=== PATIENT | male | born 1985 | race Two or more races ===

== ENCOUNTER 2016-08-20 09:47 | Emergency (ER) | payer MEDICAID, SELFPAY ==
[~2016-08-20] VITALS: Ht 185.4 cm; Wt 104.0 kg
[2016-08-20 09:49] VITALS: BP 127/78
[2016-08-20] MEDS ORDERED: AZITHROMYCIN 500 MG TABLET ONE (10:07)
[2016-08-20] MEDS ORDERED: CEFTRIAXONE 250 MG ONE (10:08)
[2016-08-20] MEDS ORDERED: AZITHROMYCIN 500 MG TABLET PO ONE (10:30)
[2016-08-20] MEDS ORDERED: CEFTRIAXONE 250 MG IM ONE (10:30)
== END 2016-08-20 11:08 | disposition home or self-care (01) ==
LOC: ED 11:02
DX: Z20.2 Contact with and (suspected) exposure to infections with a predominantly sexual mode of transmission (principal); Z90.49 Acquired absence of other specified parts of digestive tract; F17.200 Nicotine dependence, unspecified, uncomplicated
CPT/HCPCS: 87491; 87591; 96372; 99283; J0696

== ENCOUNTER 2017-11-17 18:27 | Emergency (ER) | payer MEDICAID ==
[~2017-11-17] VITALS: Ht 185.4 cm; Wt 103.0 kg
[2017-11-17 18:52] VITALS: BP 107/62
[2017-11-17] MEDS ORDERED: FLUORESCEIN/BENOXINATE 5 ML DROPS OP ONE (19:00)
[2017-11-17] MEDS ORDERED: PROPARACAINE OPHTH 0.5%, 15ML EACHEYE ONE (19:00)
[2017-11-17] MEDS ORDERED: PROPARACAINE OPHTH 0.5%, 15ML ONE (19:02)
== END 2017-11-17 19:45 | disposition home or self-care (01) ==
LOC: ED 19:39
DX: H10.022 Other mucopurulent conjunctivitis, left eye (principal); Z90.49 Acquired absence of other specified parts of digestive tract
CPT/HCPCS: 99283

== ENCOUNTER 2017-12-07 05:47 | Emergency (ER) | payer MEDICAID ==
[~2017-12-07] VITALS: Ht 185.4 cm; Wt 102.1 kg
[2017-12-07 05:49] VITALS: BP 144/75
[2017-12-07] MEDS ORDERED: CEFTRIAXONE 1,000 MG ONE (06:23)
[2017-12-07] MEDS ORDERED: AZITHROMYCIN 500 MG TABLET ONE (06:23)
[2017-12-07] MEDS ORDERED: CEFTRIAXONE 250 MG IM ONE (06:30)
[2017-12-07] MEDS ORDERED: AZITHROMYCIN 500 MG TABLET PO ONE (06:30)
== END 2017-12-07 06:38 | disposition home or self-care (01) ==
LOC: ED 06:13
DX: A56.01 Chlamydial cystitis and urethritis (principal); A59.03 Trichomonal cystitis and urethritis; F17.200 Nicotine dependence, unspecified, uncomplicated
CPT/HCPCS: 96372; 99283; J0696

== ENCOUNTER 2018-01-12 10:33 | Emergency (ER) | payer MEDICAID ==
[~2018-01-12] VITALS: Ht 185.4 cm; Wt 102.3 kg
[2018-01-12] MEDS ORDERED: FAMOTIDINE 20 MG/2 ML IVPush ONE (11:00)
[2018-01-12] MEDS ORDERED: SODIUM CHLORIDE 0.9% 1,000ML IVBOLUS ONE (11:00)
[2018-01-12] MEDS ORDERED: ONDANSETRON 2MG/ML, 2ML IVPush ONE (11:00)
[2018-01-12] MEDS ORDERED: ONDANSETRON 2MG/ML, 2ML ONE (11:07)
[2018-01-12] MEDS ORDERED: FAMOTIDINE 20 MG/2 ML ONE (11:07)
[2018-01-12 11:27] LABS: BASOPHILS # (AUTO) 0.03 x10^3/uL (0-0.1); BASOPHILS % (AUTO) 0 % (0-1); EOSINOPHILS # (AUTO) 0.06 x10^3/uL (0-0.4); EOSINOPHILS % (AUTO) 1 % (1-7); LYMPHOCYTES # (AUTO) 0.77 x10^3/uL (1-3.4); LYMPHOCYTES % (AUTO) 9 % (22-44); MD NO; MEAN CORPUSCULAR HEMOGLOBIN 31.1 pg (27.5-34.5); MEAN CORPUSCULAR HGB CONC 33.9 g/dL (33.2-36.2); MEAN CORPUSCULAR VOLUME 91.8 fL (81-97); MEAN PLATELET VOLUME 7.9 fL (7.4-10.4); MONOCYTES # (AUTO) 0.83 x10^3/uL (0.2-0.8); MONOCYTES % (AUTO) 9 % (2-9); NEUTROPHILS # (AUTO) 7.27 x10^3/uL (1.8-6.8); NEUTROPHILS % (AUTO) 81 % (42-75); PLATELET COUNT 260 x10^3/uL (130-400); RED BLOOD COUNT 5.32 x10^6/uL (4.38-5.82); RED CELL DISTRIBUTION WIDTH 13.4 % (9.4-14.8)
[2018-01-12 11:30] LABS: ALANINE AMINOTRANSFERASE 45 U/L (12-78); ALBUMIN 3.9 g/dL (3.4-5.0); ANION GAP 6 mmol/L (5-15); CALCIUM 8.7 mg/dL (8.5-10.1); CHLORIDE 103 mmol/L (98-107); CREATININE 0.81 mg/dL (0.7-1.3)
[2018-01-12 11:32] LABS: ALKALINE PHOSPHATASE 61 U/L (45-117); BILIRUBIN,TOTAL 0.5 mg/dL (0.2-1.0); TOTAL PROTEIN 7.7 g/dL (6.4-8.2)
[2018-01-12] MEDS ORDERED: KETOROLAC 30 MG/1 ML IM ONE (12:30)
[2018-01-12] MEDS ORDERED: KETOROLAC 30 MG/1 ML ONE (13:25)
[2018-01-12 14:39] LABS: CLOSTRIDIUM DIFFICILE ANTIGEN NEGATIVE; CLOSTRIDIUM DIFFICILE TOXIN NEGATIVE (Negative)
[2018-01-12] MEDS ORDERED: KETOROLAC 30 MG/1 ML IVPush ONE (15:30)
[2018-01-12 15:55] VITALS: BP 108/61
== END 2018-01-12 16:58 | disposition home or self-care (01) ==
LOC: ED 13:33
DX: K52.9 Noninfective gastroenteritis and colitis, unspecified (principal); F12.10 Cannabis abuse, uncomplicated; Z86.19 Personal history of other infectious and parasitic diseases; Z90.49 Acquired absence of other specified parts of digestive tract
CPT/HCPCS: 36415; 80053; 85025; 87324; 89055; 96361; 96374; 96375; 99284; J1885; J2405; J3490; J7030

== ENCOUNTER 2018-01-13 17:53 | Emergency (ER) | payer MEDICAID ==
[~2018-01-13] VITALS: Ht 185.4 cm; Wt 100.0 kg
[2018-01-13] MEDS ORDERED: OMNIPAQUE 350 MG/ML, 100ML BOTTLE ONE (18:05)
[2018-01-13 18:32] LABS: BASOPHILS # (AUTO) 0.07 x10^3/uL (0-0.1); BASOPHILS % (AUTO) 1 % (0-1); EOSINOPHILS # (AUTO) 0.05 x10^3/uL (0-0.4); EOSINOPHILS % (AUTO) 1 % (1-7); LYMPHOCYTES % (AUTO) 19 % (22-44); MD NO; MEAN CORPUSCULAR HEMOGLOBIN 30.9 pg (27.5-34.5); MEAN CORPUSCULAR HGB CONC 33.3 g/dL (33.2-36.2); MEAN CORPUSCULAR VOLUME 92.8 fL (81-97); MEAN PLATELET VOLUME 7.7 fL (7.4-10.4); MONOCYTES # (AUTO) 1.24 x10^3/uL (0.2-0.8); MONOCYTES % (AUTO) 15 % (2-9); NEUTROPHILS # (AUTO) 5.31 x10^3/uL (1.8-6.8); NEUTROPHILS % (AUTO) 64 % (42-75); PLATELET COUNT 265 x10^3/uL (130-400); RED BLOOD COUNT 5.29 x10^6/uL (4.38-5.82); RED CELL DISTRIBUTION WIDTH 13.2 % (9.4-14.8)
[2018-01-13 18:42] LABS: ALBUMIN 3.6 g/dL (3.4-5.0); ANION GAP 9 mmol/L (5-15); CALCIUM 8.8 mg/dL (8.5-10.1); CHLORIDE 98 mmol/L (98-107)
[2018-01-13] MEDS ORDERED: POTASSIUM CHLORIDE 20 MEQ TAB.ER.PRT ONE (18:59)
[2018-01-13] MEDS ORDERED: KETOROLAC 30 MG/1 ML ONE (18:59)
[2018-01-13] MEDS ORDERED: DIAZEPAM 5 MG TABLET ONE (18:59)
[2018-01-13] MEDS ORDERED: SODIUM CHLORIDE FLUSH 10ML SYR IVF ONE (19:00)
[2018-01-13] MEDS ORDERED: DIAZEPAM 5 MG TABLET PO ONE (19:00)
[2018-01-13] MEDS ORDERED: POTASSIUM CHLORIDE 20 MEQ TAB.ER.PRT PO ONE (19:00)
[2018-01-13] MEDS ORDERED: KETOROLAC 30 MG/1 ML IVPush ONE (19:00)
[2018-01-13] MEDS ORDERED: SODIUM CHLORIDE 0.9% 1,000ML IVBOLUS ONE (19:00)
[2018-01-13 19:23] LABS: MICROSCOPIC AUTO
[2018-01-13 19:27] LABS: CULTURE INDICATED? YES
[2018-01-13] MEDS ORDERED: CEFTRIAXONE 1,000 MG IM ONE (21:30)
[2018-01-13] MEDS ORDERED: CEFTRIAXONE 250 MG ONE (21:36)
[2018-01-13 21:43] VITALS: BP 148/67
== END 2018-01-13 21:54 | disposition home or self-care (01) ==
LOC: ED 19:40
DX: R10.2 Pelvic and perineal pain (principal); R11.2 Nausea with vomiting, unspecified; R19.7 Diarrhea, unspecified; R53.1 Weakness; F17.200 Nicotine dependence, unspecified, uncomplicated
CPT/HCPCS: 36415; 72110; 74177; 80048; 81001; 82040; 85025; 87086; 87491; 87591; 96361; 96372; 96374; 99285; J0696; J1885; J7030; Q9967

== ENCOUNTER 2019-04-10 07:14 | Emergency (ER) | payer MEDICAID ==
[~2019-04-10] VITALS: Ht 185.4 cm; Wt 114.0 kg
[2019-04-10 07:23] VITALS: BP 106/74
[2019-04-10] MEDS ORDERED: IBUPROFEN 800 MG TABLET PO ONE (08:00)
[2019-04-10 08:04] LABS: RAPID INFLUENZA A Negative (Negative); RAPID INFLUENZA B Negative (Negative)
[2019-04-10] MEDS ORDERED: IBUPROFEN 800 MG TABLET ONE (08:20)
--- NOTE | 2019-04-10 08:41 | NUR ---
Patient given discharge instructions and Rx, they have confirmed that they understand the instructions. Patient ambulatory with steady gait.
== END 2019-04-10 08:46 | disposition home or self-care (01) ==
LOC: ED 07:41
DX: J00 Acute nasopharyngitis [common cold] (principal); B97.89 Other viral agents as the cause of diseases classified elsewhere
CPT/HCPCS: 71046; 87400; 99284

== ENCOUNTER 2019-11-29 00:52 | Emergency (ER) | payer MEDICAID ==
[~2019-11-29] VITALS: Ht 185.4 cm; Wt 91.1 kg
[2019-11-29 01:04] VITALS: BP 121/67
== END 2019-11-29 02:00 | disposition home or self-care (01) ==
LOC: ED 01:29
DX: S60.512A Abrasion of left hand, initial encounter (principal); L03.114 Cellulitis of left upper limb; X58.XXXA Exposure to other specified factors, initial encounter; Y93.89 Activity, other specified; Y92.488 Other paved roadways as the place of occurrence of the external cause; Y99.8 Other external cause status
CPT/HCPCS: 99283

== ENCOUNTER 2019-12-08 19:37 | Emergency (ER) | payer MEDICAID ==
[~2019-12-08] VITALS: Ht 185.4 cm; Wt 92.0 kg
[2019-12-08 19:41] VITALS: BP 122/73
[2019-12-08] MEDS ORDERED: CEFTRIAXONE 250 MG IM ONE (20:30)
[2019-12-08] MEDS ORDERED: AZITHROMYCIN 500 MG TABLET PO ONE (20:30)
[2019-12-08] MEDS ORDERED: LIDOCAINE-MPF 1%, 2ML ONE (20:41)
[2019-12-08] MEDS ORDERED: CEFTRIAXONE 250 MG ONE (20:42)
[2019-12-08] MEDS ORDERED: AZITHROMYCIN 500 MG TABLET ONE (20:42)
== END 2019-12-08 20:59 | disposition home or self-care (01) ==
LOC: ED 20:00
DX: A64 Unspecified sexually transmitted disease (principal); A54.01 Gonococcal cystitis and urethritis, unspecified; Z72.9 Problem related to lifestyle, unspecified; F15.10 Other stimulant abuse, uncomplicated; F17.210 Nicotine dependence, cigarettes, uncomplicated; R00.0 Tachycardia, unspecified; Z90.49 Acquired absence of other specified parts of digestive tract
CPT/HCPCS: 87491; 87591; 96372; 99283; 99406; J0696

== ENCOUNTER 2020-08-16 14:38 | Emergency (ER) | payer MEDICAID ==
[~2020-08-16] VITALS: Ht 185.4 cm; Wt 116.8 kg
[2020-08-16 14:40] VITALS: BP 116/62
--- NOTE | 2020-08-16 14:50 | NUR ---
PT AMBULATORY TO BR WITH UPRIGHT STEADY GAIT
--- NOTE | 2020-08-16 14:54 | NUR ---
PA AT BS
[2020-08-16] MEDS ORDERED: CEFTRIAXONE 1,000 MG IM ONE (15:00)
[2020-08-16] MEDS ORDERED: CEFTRIAXONE 1,000 MG ONE (15:04)
--- NOTE | 2020-08-16 15:46 | NUR ---
Patient given discharge instructions and RX, they have confirmed that they understand the instructions. Patient ambulatory with steady gait.
== END 2020-08-16 15:51 | disposition home or self-care (01) ==
LOC: ED 15:35
DX: A54.9 Gonococcal infection, unspecified (principal); Z90.49 Acquired absence of other specified parts of digestive tract; F17.210 Nicotine dependence, cigarettes, uncomplicated
CPT/HCPCS: 87491; 87591; 96372; 99283; J0696

== ENCOUNTER 2020-09-17 06:32 | Emergency (ER) | payer MEDICAID ==
[~2020-09-17] VITALS: Ht 185.4 cm; Wt 117.5 kg
--- NOTE | 2020-09-17 06:41 | NUR ---
PT C/O OF PAINFUL URINATION SINCE THIS MORNING WITH DISCHARGE WAS SEEN RECENTLY FOR STD AND CONTINUED TO SLEEP WITH SAME GIRL. DENIES N/V/D, AND FEVER/CHILLS. ATTACHED TO MONITORS, VSS, NADN. RESTING IN BED. BED IN LOW POSITON, RAILS ENGAGED, CALL LIGHT ON LAP. WCTM.
[2020-09-17 06:42] VITALS: BP 109/57
[2020-09-17] MEDS ORDERED: CEFTRIAXONE 1,000 MG ONE (06:59)
[2020-09-17] MEDS ORDERED: DOXYCYCLINE 100MG TABLET ONE ×2 (06:59→07:12)
[2020-09-17] MEDS ORDERED: DOXYCYCLINE 100MG TABLET PO ONE (07:00)
[2020-09-17] MEDS ORDERED: CEFTRIAXONE 1,000 MG IM ONE (07:00)
== END 2020-09-17 07:24 | disposition home or self-care (01) ==
LOC: ED 06:59
DX: A56.01 Chlamydial cystitis and urethritis (principal); A54.9 Gonococcal infection, unspecified
CPT/HCPCS: 87491; 87591; 96372; 99283; J0696

== ENCOUNTER 2020-10-29 19:09 | Emergency (ER) | payer MEDICAID ==
[~2020-10-29] VITALS: Ht 185.4 cm; Wt 119.7 kg
[2020-10-29 19:13] VITALS: BP 124/74
--- NOTE | 2020-10-29 19:33 | NUR ---
DOUGH PANNER: PT PROVIDED URINE SAMPLE. UA SENT TO LAB
[2020-10-29] MEDS ORDERED: CEFTRIAXONE 1,000 MG IM ONE (20:30)
[2020-10-29] MEDS ORDERED: LIDOCAINE-MPF 1%, 5ML ONE (20:30)
[2020-10-29] MEDS ORDERED: CEFTRIAXONE 250 MG ONE (20:30)
== END 2020-10-29 20:54 | disposition home or self-care (01) ==
LOC: ED 19:39
DX: A54.01 Gonococcal cystitis and urethritis, unspecified (principal); Z90.49 Acquired absence of other specified parts of digestive tract
CPT/HCPCS: 87491; 87591; 96372; 99283; J0696